=== PATIENT | male | born 1995 | race Caucasian/White ===

== ENCOUNTER 2024-01-05 17:18 | Emergency (ER) | payer SELFPAY ==
[2024-01-05 18:40] LABS: BASOPHILS PERCENT AUTO 0.2 % (0.0-1.0); EOSINOPHILS PERCENT AUTO 0.1 % (1.0-3.0); HEMATOCRIT 47.4 % (40.0-54.0); HEMOGLOBIN 16.6 g/dL (14.0-18.0); LYMPHOCYTES PERCENT AUTO 16.9 % (20.5-50.1); MEAN CORPUSCULAR HEMOGLOBIN 31.8 pg (27.0-34.0); MEAN CORPUSCULAR VOLUME 90.8 fL (80-100); MONOCYTES PERCENT AUTO 15.1 % (2-8); NEUTROPHILS PERCENT AUTO 67.7 % (42.2-75.2); PLATELET COUNT,PLT 261 10^3/uL (150-450); RED BLOOD CELL COUNT 5.22 10^6/uL (4.6-6.2); WHITE BLOOD CELL COUNT,WBC 12.5 10^3/uL (5.0-10.0)
[2024-01-05] MEDS: Sodium Chloride 0.9% 1,000 ML IV ONE (18:45)
[2024-01-05] MEDS: Morphine 2 MG/ML SYRINGE IVPUSH ONE (18:50)
[2024-01-05] MEDS: Famotidine 20 MG/2 ML SDV IVPUSH ONE (18:50)
[2024-01-05] MEDS: Ondansetron 4 MG/2 ML SDV IVPUSH ONE (18:50)
[2024-01-05 19:04] LABS: ALANINE AMINOTRANSFERASE,ALT 37 U/L (16-63); ALBUMIN 4.3 g/dL (3.4-5.0); ALKALINE PHOSPHATASE 81 U/L (46-116); ANION GAP 17.5 mEq/L (7-13); ASPARTATE AMNIOTRANSFERASE,AST 26 U/L (15-37); BILIRUBIN TOTAL 1.7 mg/dL (0.2-1.0); BLOOD UREA NITROGEN,BUN 14 mg/dL (7-18); C-REACTIVE PROTEIN 0.54 ng/dL (<=0.50); CALCIUM 9.8 mg/dL (8.5-10.1); CARBON DIOXIDE,CO2 27 mmol/L (21-32); CHLORIDE,CL 98 mmol/L (98-107); CREATININE 1.27 mg/dL (0.70-1.30); GLUCOSE RANDOM 111 mg/dL (70-99); LACTIC ACID 1.6 mmol/L (0.4-2.0); LIPASE 133 U/L (16-77); POTASSIUM,K 3.5 mmol/L (3.5-5.1); PROTEIN TOTAL,TP 8.4 g/dL (6.4-8.2); SODIUM,NA 139 mmol/L (136-145)
[2024-01-05 19:05] LABS: ESTIMATED GFR 78 mL/min (>=60)
[2024-01-05 19:06] LABS: ETHANOL BLOOD MEDICAL < 3 mg/dL (0)
[2024-01-05] MEDS: Iopamidol 612 MG/ML 100 ML Bottle IVPUSH ONE (19:23)
[2024-01-05 19:38] LABS: APPEARANCE,URINE CLEAR (CLEAR); BILIRUBIN,URINE NEGATIVE (NEGATIVE); COLOR,URINE YELLOW (YELLOW); GLUCOSE,URINE NEGATIVE (NEGATIVE); KETONES,URINE TRACE (NEGATIVE); LEUKOCYTE ESTERASE,URINE NEGATIVE (NEGATIVE); NITRITE,URINE NEGATIVE (NEGATIVE); OCCULT BLOOD,URINE LARGE (NEGATIVE); PH,URINE 5.5 (5.0-9.0); PROTEIN,URINE 30 (NEGATIVE); UROBILINOGEN,URINE 0.2 mg/dL (0.2-1.0)
[2024-01-05 20:02] LABS: BACTERIA,URINE FEW /HPF (0-FEW/HPF); EPITHELIAL CELLS,URINE RARE /HPF (NOT SEEN); WBC,URINE 0-5 /HPF (0-5/HPF)
[2024-01-05] MEDS: Tamsulosin 0.4 MG Cap.ER PO ONE (20:58)
== END 2024-01-05 21:10 | disposition home or self-care (01) ==
LOC: DL.ED 17:18
DX: N13.2 Hydronephrosis with renal and ureteral calculous obstruction (principal); K85.90 Acute pancreatitis without necrosis or infection, unspecified; K76.0 Fatty (change of) liver, not elsewhere classified
CPT/HCPCS: 36415; 74177; 80053; 80307; 81001; 83605; 83690; 83735; 84484; 85025; 86140; 93005; 96361; 96374; 96375; 99284; A9270; J2270; J2405; J3490; J7030; Q9967; 93010